=== PATIENT | male | born 1945 | race Caucasian/White ===

== ENCOUNTER 2022-10-22 07:23 | Day surgery (SDC) | payer OTHER ==
[~2022-10-22] VITALS: Ht 182.9 cm; Wt 70.8 kg
[2022-10-22] MEDS ORDERED: fentaNYL CITRATE/PF 100 MCG/2 ML AMP ONE (08:13)
[2022-10-22] MEDS ORDERED: MIDAZOLAM HCL 5 MG/5 ML VIAL ONE (08:14)
[2022-10-22] MEDS ORDERED: SIMETHICONE 40 MG/0.6 ML ML ONE (08:14)
[2022-10-22 08:45] VITALS: O2SAT 98
[2022-10-22 13:11] VITALS: BP_SYST 173; PULSE 60; RESP 19; TEMP 97.6
== END 2022-10-23 09:33 | disposition home or self-care (01) ==
LOC: SDS 07:23 → SMU 07:24 → SDS 10-23 09:33
PROVIDERS: ATTEND Internal Medicine
DX: R11.2 Nausea with vomiting, unspecified (principal); K29.50 Unspecified chronic gastritis without bleeding; I12.9 Hypertensive chronic kidney disease with stage 1 through stage 4 chronic kidney disease, or unspecified chronic kidney disease; E11.22 Type 2 diabetes mellitus with diabetic chronic kidney disease; N18.9 Chronic kidney disease, unspecified; J44.9 Chronic obstructive pulmonary disease, unspecified; E78.5 Hyperlipidemia, unspecified; K58.9 Irritable bowel syndrome, unspecified; Z86.010 Personal history of colon polyps; Z79.899 Other long term (current) drug therapy
CPT/HCPCS: 43239; 87081; 82962; 36415; 88305; 88312; 88313; G0378; J2250; J3010